=== PATIENT | female | born 1980 | race Caucasian/White ===

== ENCOUNTER 2021-10-16 15:07 | Emergency (ER) | payer SELFPAY ==
[2021-10-16] MEDS ORDERED: Sodium Chloride 0.9% 10 ML Syringe FLUSH PRN (15:34)
[2021-10-16] MEDS ORDERED: Sodium Chloride 0.9% 2.5 ML Syringe FLUSH PRN (15:34)
[2021-10-16] MEDS ORDERED: Ketorolac 30 MG/ML SDV IVPUSH ONE (15:40)
[2021-10-16] MEDS ORDERED: Sodium Chloride 0.9% 1,000 ML IV ONE (15:40)
[2021-10-16 16:03] LABS: BLOOD UREA NITROGEN,BUN 10 mg/dL (7.0-18.0); CHLORIDE,CL 106 mmol/L (98-107); GLUCOSE RANDOM 117 mg/dL (74-106); POTASSIUM,K 3.6 mmol/L (3.5-5.1); SODIUM,NA 139 mmol/L (136-145)
[2021-10-16] MEDS ORDERED: Iopamidol 755 MG/ML 500 ML Multipack Bottle IVPUSH STA (16:37)
== END 2021-10-16 19:55 | disposition home or self-care (01) ==
LOC: MW.ED 15:07
DX: R19.09 Other intra-abdominal and pelvic swelling, mass and lump (principal); Z88.0 Allergy status to penicillin
CPT/HCPCS: 36415; 74177; 76856; 80053; 85610; 96374; 99284; J1885; J3490; J7030; Q9967

== ENCOUNTER 2021-11-27 08:00 | Inpatient (IN) | payer OTHER ==
[2022-01-02] MEDS ORDERED: Sodium Chloride 0.9% 10 ML Syringe FLUSH PRN (01:41)
[2022-01-02] MEDS ORDERED: Sodium Chloride 0.9% 2.5 ML Syringe FLUSH PRN (01:41)
[2022-01-02] MEDS ORDERED: Sodium Chloride 0.9% 20 ML SDV IV PRN (01:41)
[2022-01-02] MEDS ORDERED: Lactated Ringers 1,000 ML IV SCH (06:30)
[2022-01-02] MEDS: Enoxaparin 40 MG/0.4 ML Syringe SUBCUT SCH (06:53)
[2022-01-02] MEDS ORDERED: Gentamicin Pediatric 10 MG/ML 2 ML SDV IV ONE (07:00)
[2022-01-02] MEDS ORDERED: Gentamicin 400 MG in Sodium Chloride 0.9% 100 ML IV ONE (07:00)
[2022-01-02] MEDS ORDERED: Clindamycin Phosphate in D5W 900 MG in Premix Bag 1 BAG IV ONE ×2 (07:00)
[2022-01-02] MEDS ORDERED: Dexmedetomidine 200 MCG/2 ML SDV ONE (07:22)
[2022-01-02] MEDS ORDERED: fentaNYL 100 MCG/2 ML SDV ONE (07:22)
[2022-01-02] MEDS ORDERED: Dexamethasone 4 MG/ML 5 ML MDV ONE (07:22)
[2022-01-02] MEDS ORDERED: Midazolam 1 MG/ML 2 ML SDV ONE (07:22)
[2022-01-02] MEDS ORDERED: Ketamine 500 mg/10 ML MDV ONE (07:22)
[2022-01-02] MEDS ORDERED: Water For Injection, Sterile 20 ML ONE (07:23)
[2022-01-02] MEDS ORDERED: Rocuronium Bromide 50 MG/5 ML Syringe ONE ×2 (07:23→08:49)
[2022-01-02] MEDS ORDERED: propofoL 100 ML ONE (07:25)
[2022-01-02] MEDS ORDERED: Bupivacaine 0.5% 30 ML SDV ONE (07:33)
[2022-01-02] MEDS ORDERED: Bupivacaine 0.25% 30 ML SDV ONE (07:34)
[2022-01-02] MEDS ORDERED: Octyl 2-Cyanoacrylate 1 g/1 mL 1 APPLIC PEN ONE (07:34)
[2022-01-02] MEDS ORDERED: fentaNYL 50 MCG/ML SDV IVPUSH PRN (07:40)
[2022-01-02] MEDS ORDERED: Morphine 4 MG/ML VIAL IVPUSH PRN ×2 (07:40→10:41)
[2022-01-02] MEDS ORDERED: Albuterol 0.083% 2.5 MG/3 ML Neb Soln NEB PRN (07:40)
[2022-01-02] MEDS ORDERED: Metoclopramide 10 MG/2 ML SDV IVPUSH PRN (07:40)
[2022-01-02] MEDS ORDERED: Ondansetron 4 MG/2 ML SDV IVPUSH PRN (07:40)
[2022-01-02] MEDS ORDERED: Naloxone 0.4 MG/ML SDV IVPUSH PRN (07:40)
[2022-01-02] MEDS ORDERED: HYDROmorphone 1 MG/ML Syringe IVPUSH PRN ×2 (07:40→17:20)
[2022-01-02] MEDS ORDERED: Scopolamine 1.5 MG Transdermal Patch TOP ONE (07:42)
[2022-01-02] MEDS ORDERED: Methylene Blue 50 MG/10 ML Ampule ONE (07:56)
[2022-01-02] MEDS ORDERED: Ondansetron 4 MG/2 ML SDV ONE (08:45)
[2022-01-02] MEDS ORDERED: Ketorolac 30 MG/ML SDV ONE (08:45)
[2022-01-02] MEDS ORDERED: Sugammadex Sodium 200 MG/2 ML VIAL ONE (08:45)
[2022-01-02] MEDS ORDERED: Phenylephrine HCl In 0.9% NaCl 1 MG/10 ML Vial ONE (08:46)
[2022-01-02] MEDS ORDERED: Fluorescein 5 ML Vial ONE (08:49)
[2022-01-02] MEDS ORDERED: Furosemide 40 MG/4 ML VIAL ONE (09:36)
[2022-01-02] MEDS ORDERED: Ketorolac 30 MG/ML SDV IVPUSH PRN (10:41)
[2022-01-02] MEDS ORDERED: Acetaminophen/oxyCODONE 325-5 MG Tab PO PRN (10:41)
[2022-01-02] MEDS: Lactated Ringers 1,000 ML IV SCH ×3 (12:30→23:06)
[2022-01-02] MEDS: Acetaminophen/oxyCODONE 325-5 MG Tab PO PRN ×3 (14:52→22:46)
[2022-01-03] MEDS: Acetaminophen/oxyCODONE 325-5 MG Tab PO PRN ×3 (06:06→20:51)
[2022-01-03] MEDS: Enoxaparin 40 MG/0.4 ML Syringe SUBCUT SCH (06:07)
[2022-01-03 07:08] LABS: CARBON DIOXIDE,CO2 29.4 mmol/L (21.0-32.0); POTASSIUM,K 4.4 mmol/L (3.5-5.1)
[2022-01-03 09:05] LABS: CARBON DIOXIDE,CO2 29.2 mmol/L (21.0-32.0); POTASSIUM,K 4.5 mmol/L (3.5-5.1)
[2022-01-03] MEDS: Lactated Ringers 1,000 ML IV SCH (23:17)
[2022-01-04] MEDS: Enoxaparin 40 MG/0.4 ML Syringe SUBCUT SCH (06:00)
[2022-01-04 06:48] LABS: CARBON DIOXIDE,CO2 29.5 mmol/L (21.0-32.0); POTASSIUM,K 4.8 mmol/L (3.5-5.1)
[2022-01-04] MEDS: Acetaminophen/oxyCODONE 325-5 MG Tab PO PRN (09:38)
== END 2022-01-04 10:00 | disposition home or self-care (01) | DRG 743 ==
LOC: MW.MS 01-02 11:40
PROVIDERS: ADMIT Obstetrics & Gynecology; ATTEND Obstetrics & Gynecology
PROC: 0UT90ZZ Resection of Uterus, Open Approach (ICD-10-PCS; principal; 2022-01-02)
PROC: 0UT70ZZ Resection of Bilateral Fallopian Tubes, Open Approach (ICD-10-PCS; 2022-01-02)
DX: D27.0 Benign neoplasm of right ovary (principal); Z20.822 Contact with and (suspected) exposure to COVID-19; F41.9 Anxiety disorder, unspecified; Z86.718 Personal history of other venous thrombosis and embolism; Z79.01 Long term (current) use of anticoagulants
CPT/HCPCS: 00840; 36415; 64488; 80048; 80053; 84703; 85025; 85027; 86850; 86900; 86901; A9270-GY; J0131; J1100; J1170; J1580; J1650; J1885; J1940; J2250; J2405; J2704; J3010; J3490; J7030; J7120; U0002